=== PATIENT | female | born 2000 | race Caucasian/White ===

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

== ENCOUNTER → 2022-05-21 14:54 | Outpatient (CLI) | payer OTHER, SELFPAY | PROVIDERS: PCP Emergency Medicine; Visit Provider Nurse Practitioner | DX: Z02.9 Encounter for administrative examinations, unspecified (principal); Z11.1 Encounter for screening for respiratory tuberculosis ==

== ENCOUNTER 2022-07-19 17:24 | Emergency (ER) | payer OTHER, SELFPAY ==
[2022-07-19 17:30] VITALS: BP 131/76; PULSE 89; RESP 18; TEMP 36.6; O2SAT 98; BMI 34.7
--- NOTE | 2022-07-19 17:39 | EXP.UTC ---
Discharge Plan Disposition Patient Disposition: Home, Self-Care Condition: Good Prescriptions Prescriptions: New methylprednisolone [Medrol (Azeem)] 4 mg tablets,dose pack See Rx Instructions .Route .COMPLEX 6 Days Qty: 21 0RF Rx Instructions: taper pack; amoxicillin-pot clavulanate 875-125 mg Tablet 1 tab PO Q12H Qty: 14 0RF Referrals Follow up/Referrals: Marbin Saeed APRN [Primary Care Provider] - See instructions Activity Restrictions/Add. Instructions Additional Instructions/Restrictions: Take medication as presribed Follow up with your Family Doctor if no improvement or any worsening of symptoms Return if needed Straight to ER if any life threatening symptoms Clinical Impressions Clinical Impression: Sinusitis Qualifiers: Sinusitis location: unspecified location Chronicity: unspecified Qualified Code(s): J32.9 - Chronic sinusitis, unspecified Instructions Patient Instructions: Sinusitis, DI for Sinusitis Discharge ED Provider: Ghislaine Mccartney [facility] General Stated complaint: congestion Time Seen by Provider: 07/19/22 17:39 History of Present Illness Provider Complaint: Patient states that she has been having sinus pain and pressure for about a week that has continued to get worse States that today she was having pain behind her eyes and in her ears so she came in to get checked Related Data Previous Rx's Medication Instructions Recorded amoxicillin 875 mg-potassium 1 tab PO Q12H #14 tabs 07/19/22 clavulanate 125 mg tablet methylprednisolone 4 mg tablets in See Rx Instructions .Route 07/19/22 a dose pack (Medrol (Azeem)) .COMPLEX 6 days #21 tabs Allergies Allergy/AdvReac Type Severity Reaction Status Date / Time sulfamethoxazole Allergy Intermediate Rash Verified 10/09/20 11:31 [From Bactrim] trimethoprim [From Bactrim] Allergy Intermediate Rash Verified 10/09/20 11:31 Sulfa (Sulfonamide Allergy Verified 09/19/21 12:27 Antibiotics) [facility] Disclaimer: The information contained in this section may have been updated after the patient was seen, as this information can be updated by other users. Medical History (Updated 07/19/22 @ 17:44 by Danielle Tirado RN) Anxiety Depression Kidney stone Urinary tract infection Surgical History (Updated 07/19/22 @ 17:44 by Danielle Tirado RN) History of cholecystectomy History of tonsillectomy History of tympanostomy tube placement Social History (Updated 07/19/22 @ 17:44 by Danielle Tirado RN) Smoking Status: Never smoker alcohol intake: never substance use type: denies use current occupational status: other Travel in the last 8 weeks: None household members: family housing: house current occupational exposures/hazards: No ROS Obtained: Yes All systems reviewed & no additional complaints except as documented and Yes Systems reviewed as appropriate & no additional complaints except as documented Constitutional Constitutional: Reports system reviewed and no additional complaints, except as documented and Reports as per HPI ENT Ears, Nose, Mouth, and Throat: Reports system reviewed and no additional complaints, except as documented, Reports as per HPI, Reports sinus pain and Reports sinus pressure Cardiovascular Cardiovascular: Reports system reviewed and no additional complaints, except as documented and Reports as per HPI Respiratory Respiratory: Reports system reviewed and no additional complaints, except as documented and Reports as per HPI Gastrointestinal Gastrointestingal: Reports system reviewed and no additional complaints, except as documented and as per HPI Physical Exam General General appearance: alert and in no apparent distress Expanded ENT Exam Nose exam: Present sinus tenderness Throat exam: Present other (pharyngeal erythema noted with PND) Respiratory Respiratory exam: Present normal lung sounds bilaterally; Absent respiratory distress or wheezes Cardiovascul
[2022-07-19 17:50] VITALS: BP 131/76; PULSE 89; RESP 18; TEMP 36.6; O2SAT 98
== END 2022-07-19 17:57 | disposition home or self-care (01) ==
PROVIDERS: Emergency Provider Nurse Practitioner; PCP Nurse Practitioner Family
DX: J32.9 Chronic sinusitis, unspecified (principal)
CPT/HCPCS: 99212; G0463

== ENCOUNTER 2022-09-16 11:53 | Emergency (ER) | payer OTHER, SELFPAY ==
--- NOTE | 2022-09-16 11:57 | XR_ITS ---
PROCEDURE INFORMATION: Exam: XR Right Foot Exam date and time: 09/16/2022 12:06 PM Age: 22 years old Clinical indication: Pain; Foot; Right; Additional info: Pain- no injury just pain and unable to weight bear TECHNIQUE: Imaging protocol: Radiologic exam of the right foot. Views: 3 or more views. COMPARISON: CR XR ANKLE RT MIN 3V 09/16/2022 12:04 PM FINDINGS: Bones/joints: Normal alignment. No fracture. Joint surfaces preserved. Soft tissues: Normal. IMPRESSION: Normal right foot.
--- NOTE | 2022-09-16 11:57 | XR_ITS ---
PROCEDURE INFORMATION: Exam: XR Right Ankle Exam date and time: 09/16/2022 12:04 PM Age: 22 years old Clinical indication: Pain; Foot; Right; Additional info: Pain- no injury just pain and unable to weight bear TECHNIQUE: Imaging protocol: Radiologic exam of the right ankle. Views: 3 or more views. COMPARISON: No relevant prior studies available. FINDINGS: Bones/joints: Osseous structures and joint surfaces are intact. No fracture or malalignment. Soft tissues: Normal. IMPRESSION: Normal right ankle
--- NOTE | 2022-09-16 13:37 | EXP.UTC ---
Discharge Plan Disposition Patient Disposition: Home, Self-Care Condition: Good Prescriptions Prescriptions: New ibuprofen [IBU] 800 mg tablet 800 mg PO Q8HP PRN (Reason: Moderate Pain) Qty: 30 0RF Referrals Follow up/Referrals: Marbin Saeed APRN [Primary Care Provider] - See instructions Activity Restrictions/Add. Instructions Additional Instructions/Restrictions: Rest the extremity, Elevate the extremity as tolerated while you are resting. Take ibuprofen for pain. I sent in a prescription to your pharmacy. Follow up with Dr. Del Castillo (podiatry). Call her office in the morning and schedule an appointment. Follow up with your regular doctor. GO TO THE ER FOR ANY WORSENING SYMPTOMS Continue to use the crutches. Clinical Impressions Clinical Impression: Sprain of ankle, right Instructions Patient Instructions: Ankle Sprain, DI for Ankle Sprain Discharge ED Provider: Rowdy Young [facility] General Stated complaint: right foot/ankle pain, no known accident Time Seen by Provider: 09/16/22 13:37 History of Present Illness Provider Complaint: She states that she twisted her right ankle and fell 1 week ago. She has continued to have right ankle pain and swelling since then. Related Data Previous Rx's Medication Instructions Recorded ibuprofen 800 mg tablet (IBU) 800 mg PO Q8HP PRN Moderate Pain 09/16/22 #30 tabs Allergies Allergy/AdvReac Type Severity Reaction Status Date / Time sulfamethoxazole Allergy Intermediate Rash Verified 09/16/22 13:46 [From Bactrim] trimethoprim [From Bactrim] Allergy Intermediate Rash Verified 09/16/22 13:46 Sulfa (Sulfonamide Allergy Verified 09/16/22 13:46 Antibiotics) [facility] Disclaimer: The information contained in this section may have been updated after the patient was seen, as this information can be updated by other users. Medical History Anxiety Depression Kidney stone Urinary tract infection Surgical History History of cholecystectomy History of tonsillectomy History of tympanostomy tube placement Social History Smoking Status: Never smoker alcohol intake: never substance use type: denies use current occupational status: other Travel in the last 8 weeks: None household members: family housing: house current occupational exposures/hazards: No ROS Obtained: Yes All systems reviewed & no additional complaints except as documented Constitutional Constitutional: Denies chills and Denies fever(s) Eyes Eyes: Denies eye discharge ENT Ears, Nose, Mouth, and Throat: Denies dizziness, Denies otalgia and Denies sore throat Cardiovascular Cardiovascular: Denies chest pain Respiratory Respiratory: Denies shortness of breath, Denies chest congestion, Denies cough, Denies stridor and Denies wheezing Gastrointestinal Gastrointestingal: Denies nausea or vomiting Musculoskeletal Musculoskeletal: Reports as per HPI and Denies numbness Integumentary/Breasts Skin/Breast: Denies rash Neurologic Neurologic: Denies dizziness, Denies numbness, Denies paresthesias and Denies radicular pain Allergic/Immunologic Allergic/Immunologic: Denies wheezing Physical Exam General General appearance: alert and in no apparent distress Head Head exam: atraumatic, normocephalic and normal inspection Eye Eye exam: Present normal appearance, PERRL and EOMI ENT ENT exam: Present normal exam, normal oropharynx, mucous membranes moist, TM's normal bilaterally and normal external ear exam Neck Neck exam: Present normal inspection, full ROM and trachea midline; Absent meningismus or lymphadenopathy Chest Chest inspection: Present normal inspection and symmetric chest wall rise; Absent tenderness Respiratory Respiratory exam: Present normal lung sounds bilaterally; Absent respi
[2022-09-16 13:40] VITALS: BP 144/82; PULSE 101; RESP 20; TEMP 36.8; O2SAT 97; BMI 34.5
[2022-09-16 15:01] VITALS: BP 144/82; PULSE 101; RESP 20; TEMP 36.8; O2SAT 97
--- NOTE | 2022-09-16 15:06 | PC.NURSE ---
Pt extremity has good coloring, warm temp, good cap refill. She stated that she could feel me touching on her foot. Placed a air cast on the pts ankle.
== END 2022-09-16 15:00 | disposition home or self-care (01) ==
PROVIDERS: Emergency Provider Nurse Practitioner Family; PCP Nurse Practitioner Family
DX: S93.401A Sprain of unspecified ligament of right ankle, initial encounter (principal); W18.39XA Other fall on same level, initial encounter
CPT/HCPCS: 29515; 73610; 73630; 99212; 99214; G0463

== ENCOUNTER 2022-12-12 19:51 | Emergency (ER) | payer OTHER, SELFPAY ==
[2022-12-12 19:52] VITALS: BP 119/73; PULSE 60; RESP 16; TEMP 37; O2SAT 100; BMI 33.6
--- NOTE | 2022-12-12 20:09 | EXP.UTC ---
Discharge Plan Disposition Patient Disposition: Home, Self-Care Condition: Good Prescriptions Prescriptions: New amoxicillin [amoxicillin] 875 mg tablet 875 mg PO Q12H Qty: 20 0RF [id number]-cfihnprpk-DS [Bromfed DM] 2-30-10 mg/5 mL Syrup 5 ml PO Q6H PRN (Reason: Cough) Qty: 240 0RF methylprednisolone 4 mg Tablets,Dose Pack 4 mg PO DIRECTED Qty: 21 0RF No Action ibuprofen [IBU] 800 mg tablet 800 mg PO Q8HP PRN (Reason: Moderate Pain) Qty: 30 0RF Referrals Follow up/Referrals: Estephanie Marmolejo PA [Primary Care Provider] - See instructions Activity Restrictions/Add. Instructions Additional Instructions/Restrictions: Drink plenty of fluids. Take tylenol or ibuprofen for pain or fever. Take the medications as directed. Follow up with your regular doctor. GO TO THE ER FOR ANY WORSENING SYMPTOMS Clinical Impressions Clinical Impression: Pharyngitis Stand Alone Forms Stand Alone Forms: Work/School Release Instructions Patient Instructions: Sore Throat, DI for Pharyngitis/Tonsillopharyngitis -- Adult Discharge ED Provider: Rowdy Young [facility] General Stated complaint: sore throat, STEWARD Time Seen by Provider: 12/12/22 20:09 History of Present Illness Provider Complaint: She states that for the past 2 days she has had a sore throat, cough, body aches and chills. She has been exposed to strep throat. Related Data Previous Rx's Medication Instructions Recorded ibuprofen 800 mg tablet (IBU) 800 mg PO Q8HP PRN Moderate Pain 09/16/22 #30 tabs amoxicillin 875 mg tablet 875 mg PO Q12H #20 tabs 12/12/22 [id number]-gbweejrodbcomuh-RF 5 ml PO Q6H PRN Cough #240 mL 12/12/22 2 mg-30 mg-10 mg/5 mL oral syrup (Bromfed DM) methylprednisolone 4 mg tablets in 4 mg PO DIRECTED #21 tabs 12/12/22 a dose pack Allergies Allergy/AdvReac Type Severity Reaction Status Date / Time sulfamethoxazole Allergy Intermediate Rash Verified 09/16/22 13:46 [From Bactrim] trimethoprim [From Bactrim] Allergy Intermediate Rash Verified 09/16/22 13:46 Sulfa (Sulfonamide Allergy Verified 09/16/22 13:46 Antibiotics) [facility] Disclaimer: The information contained in this section may have been updated after the patient was seen, as this information can be updated by other users. Medical History Anxiety Depression Kidney stone Urinary tract infection Surgical History History of cholecystectomy History of tonsillectomy History of tympanostomy tube placement Social History Smoking Status: Never smoker alcohol intake: never substance use type: denies use current occupational status: other Travel in the last 8 weeks: None household members: family housing: house current occupational exposures/hazards: No ROS Obtained: Yes All systems reviewed & no additional complaints except as documented Constitutional Constitutional: Reports chills and Reports fever(s) Eyes Eyes: Denies eye discharge ENT Ears, Nose, Mouth, and Throat: Reports as per HPI Cardiovascular Cardiovascular: Denies chest pain Respiratory Respiratory: Denies chest congestion and Reports cough Gastrointestinal Gastrointestingal: Reports nausea; Denies abdominal pain, constipation, cramping, diarrhea or vomiting Musculoskeletal Musculoskeletal: Denies arthralgias Integumentary/Breasts Skin/Breast: Denies rash Neurologic Neurologic: Denies paresthesias Physical Exam General General appearance: alert and in no apparent distress Head Head exam: atraumatic, normocephalic and normal inspection Eye Eye exam: Present normal appearance, PERRL and EOMI ENT ENT exam: Present mucous membranes moist and normal external ear exam Expanded ENT Exam TM/Canal exam: Bilateral TM: erythema and bulging Nose exam: Absent sinus ten
[2022-12-12 20:18] LABS: UTC Strep Screen (Rapid) Negative (Negative)
[2022-12-12 20:28] VITALS: BP 119/73; PULSE 60; RESP 16; TEMP 37; O2SAT 100
== END 2022-12-12 20:29 | disposition home or self-care (01) ==
PROVIDERS: Emergency Provider Nurse Practitioner Family; PCP Physician Assistant
DX: J02.9 Acute pharyngitis, unspecified (principal); R68.83 Chills (without fever); F41.9 Anxiety disorder, unspecified; F32.A Depression, unspecified
CPT/HCPCS: 87880; 99212; 99214; G0463

== ENCOUNTER 2024-05-04 13:43 | Emergency (ER) | payer OTHER, SELFPAY ==
[2024-05-04 13:50] VITALS: BP 128/83; PULSE 77; RESP 20; TEMP 37.1; O2SAT 99; BMI 33.7
--- NOTE | 2024-05-04 13:51 | ED_ITS ---
Discharge Plan Disposition Patient Disposition: Home, Self-Care Condition: Good Prescriptions Prescriptions: New amoxicillin 875 mg tablet 875 mg PO Q12H Qty: 20 0RF [id number]-ysjqzabki-SG [Bromfed DM] 2-30-10 mg/5 mL Syrup 5 ml PO Q6H PRN (Reason: Cough) Qty: 240 0RF ondansetron 4 mg Tablet,Disintegrating 4 mg PO Q8H PRN (Reason: Nausea) Qty: 12 0RF Referrals Follow up/Referrals: Lev Frank DO [Primary Care Provider] - See instructions Activity Restrictions/Add. Instructions Additional Instructions/Restrictions: Drink plenty of fluids. Take tylenol or ibuprofen for pain or fever. Take the medications as directed. Follow up with your regular doctor. GO TO THE ER FOR ANY WORSENING SYMPTOMS Clinical Impressions Clinical Impression: Pharyngitis, Sinusitis Stand Alone Forms Stand Alone Forms: Work/School Release Instructions Patient Instructions: Sinusitis, DI for Sinusitis Print Language Print Language: [place] Discharge ED Provider: Rowdy Young [facility] General Stated complaint: congestion sore throat Time Seen by Provider: 05/04/24 13:50 History of Present Illness Provider Complaint: His mother states that the child has had sore throat, ear pain, and a cough for the past 5 days. They deny any fever/chills. Related Data Previous Rx's ?Medication ?Instructions ?Recorded amoxicillin 875 mg tablet 875 mg PO Q12H #20 tabs 05/04/24 jyczxjsvqzknjdh-ibazxdsyaxoplbb-BK 5 ml PO Q6H PRN Cough #240 mL 05/04/24 2 mg-30 mg-10 mg/5 mL oral syrup (Bromfed DM) ondansetron 4 mg disintegrating 4 mg PO Q8H PRN Nausea #12 tabs 05/04/24 tablet Allergies Allergy/AdvReac Type Severity Reaction Status Date / Time sulfamethoxazole Allergy Intermediate Rash Verified 09/16/22 13:46 [From Bactrim] trimethoprim [From Bactrim] Allergy Intermediate Rash Verified 09/16/22 13:46 Sulfa (Sulfonamide Allergy Verified 09/16/22 13:46 Antibiotics) [facility] Disclaimer: The information contained in this section may have been updated after the patient was seen, as this information can be updated by other users. Medical History Anxiety Depression Kidney stone Urinary tract infection Surgical History History of cholecystectomy History of tonsillectomy History of tympanostomy tube placement Social History Smoking Status: Never smoker alcohol intake: never substance use type: denies use current occupational status: other Travel in the last 8 weeks: None household members: family housing: house current occupational exposures/hazards: No ROS Obtained: Yes All systems reviewed & no additional complaints except as documented Constitutional Constitutional: Reports chills and Reports fever(s) Eyes Eyes: Denies eye discharge ENT Ears, Nose, Mouth, and Throat: Reports as per HPI Cardiovascular Cardiovascular: Denies chest pain Respiratory Respiratory: Denies chest congestion and Reports cough Gastrointestinal Gastrointestingal: Reports nausea; Denies abdominal pain, constipation, cramping, diarrhea or vomiting Musculoskeletal Musculoskeletal: Denies arthralgias Integumentary/Breasts Skin/Breast: Denies rash Neurologic Neurologic: Denies paresthesias Physical Exam General General appearance: alert and in no apparent distress Head Head exam: atraumatic, normocephalic and normal inspection Eye Eye exam: Present normal appearance; Absent PERRL or EOMI ENT ENT exam: Present mucous membranes moist and normal external ear exam Expanded ENT Exam TM/Canal exam: Bilateral TM: erythema, bulging and effusion Nose exam: Absent sinus tenderness Nasal speculum exam: Bilateral: normal Mouth exam: Present normal external inspection and other; Absent drooling Teeth exam: Present normal inspection Throat exam: Present tonsillar erythema and tonsillomegaly Neck Neck exam: Present normal inspection, full ROM and trachea midline; Absent te nderness, meningismus or lymphadenopathy Chest Chest inspection: Present normal inspection and symmetric chest wall rise; Absent tenderness Respiratory Respiratory exam: Present normal lung sounds bilaterally; Absent respiratory distress, wheezes or stridor Cardiovascular Cardiovascular exam: Present regular rate, normal rhythm and normal heart sounds; Absent tachycardia or irregular rhythm Abdominal Exam Abdominal exam: Present soft and normal bowel sounds; Absent distention, tenderness, guarding, rebound or rigidity Extremities Exam Extremities exam: Present normal inspection and normal capillary refill; Absent tenderness, joint swelling or calf tenderness Back Exam Back exam: Present normal inspection and full ROM; Absent tenderness, CVA tenderness (R) or CVA tenderness (L) Neurological Exam Neurological exam: Present alert, oriented X3, CN II-XII intact, normal gait and reflexes normal; Absent motor sensory deficit Psychiatric Psychiatric exam: Present normal affect and normal mood Skin Skin exam: Present warm, dry, intact and normal color Lymphatic Lymphatic Findings: no adenopathy Medical Decision Making Medical Records Medical records reviewed: No I reviewed the patient's medical records. Screening: Per USPSTF and CDC recommendations, given the prevalence of disease in our region, it is our hospital?s policy to screen for HIV and viral Hepatitis for all patients aged 18 and over and those with ongoing risk factors. Petar Inquiry Pt receiving controlled substance: No Lab Data Lab results reviewed: Yes I reviewed the patient's lab results.
[2024-05-04 14:02] LABS: UTC Strep Screen (Rapid) Negative (Negative)
[2024-05-04 14:27] VITALS: BP 128/83; PULSE 77; RESP 20; TEMP 37.1; O2SAT 99
[2024-05-04 14:34] LABS: Coronavirus 19, PCR Not Detected (NotDetected); Influenza A, PCR Not Detected (NotDetected); Influenza B, PCR Not Detected (NotDetected)
== END 2024-05-04 14:29 | disposition home or self-care (01) ==
PROVIDERS: Emergency Provider Nurse Practitioner Family; PCP Internal Medicine
DX: J02.9 Acute pharyngitis, unspecified (principal); J01.80 Other acute sinusitis
CPT/HCPCS: 87636; 87880; 99213; G0381

== ENCOUNTER 2024-05-09 10:18 | Outpatient (CLI) | payer SELFPAY ==
[2024-05-09 11:21] VITALS: BMI 32.8
[2024-05-09] MEDS: TUBERCULIN 5 UNITS/0.1ML 1ML VIAL ID (11:23)
== END 2024-05-09 23:59 | disposition home or self-care (01) ==
LOC: UTC.OUT 10:22
PROVIDERS: Visit Provider Nurse Practitioner Family
DX: Z11.1 Encounter for screening for respiratory tuberculosis (principal)
CPT/HCPCS: 86580

== ENCOUNTER 2024-09-08 10:51 | Outpatient (CLI) | payer OTHER, SELFPAY ==
[2024-09-08 21:04] LABS: Coronavirus 19, PCR Not Detected (NotDetected); Influenza A, PCR Not Detected (NotDetected); Influenza B, PCR Not Detected (NotDetected)
== END 2024-09-08 23:59 | disposition home or self-care (01) ==
LOC: LAB.DROPOF 09-09 10:51
PROVIDERS: PCP Student in an Organized Health Care Education/Training Program; Visit Provider Student in an Organized Health Care Education/Training Program
DX: J06.9 Acute upper respiratory infection, unspecified (principal); B34.9 Viral infection, unspecified
CPT/HCPCS: 87636

== ENCOUNTER 2024-09-09 15:13 | Emergency (ER) | payer OTHER, SELFPAY ==
[2024-09-09 15:23] VITALS: BP 144/89; PULSE 86; RESP 18; TEMP 36.9; O2SAT 99; BMI 35.4
--- NOTE | 2024-09-09 15:37 | PC.NURSE ---
pt c/o N/V/D, generalized intermittant abd cramping that is 6/10, and pressure with urination. pt states she took 400mg ibuprofen around 1200 without any relief. pt also reports concern that her LMP was 12.25.24 She states she is only sexually active with her and there is no chance of . pt reports a few years ago she had a R ovarian cyst the size of a football removed laproscopically. She states this abd pain is similar to then. pt also reports nasal congestion, a productive cough with milky green sputum, and losing her voice x2d. pt states she was seen at a [facility] yesterday evening and was negative for covid/flu.
--- NOTE | 2024-09-09 15:43 | ED_ITS ---
<Statement entered by Elva Cartagena DO - 09/10/24 00:33> I was consulted by the PRESTON, and we discussed the complexity of the problems being addressed. I approved the treatment and management plan for this patient's care in the emergency department, thus performing a substantive portion of the medical decision making. Please note then that is documented advises the patient was discharged with a disimpaction sheet, however she was not because she is having diarrhea. He looks that she has urinary tract infection as well as gastroenteritis. She was discharged with cefdinir, antiemetics, and instructions for supportive management. Elva Cartagena DO Discharge Plan Disposition Patient Disposition: Home, Self-Care Condition: Good Prescriptions Prescriptions: New ondansetron 4 mg tablet,disintegrating 4 mg PO QID PRN (Reason: nausea and vomiting) Qty: 10 0RF cefdinir 300 mg capsule 300 mg PO BID 5 Days Qty: 10 0RF promethazine 25 mg tablet 25 mg PO Q6H PRN (Reason: nausea and vomiting) Qty: 20 0RF Referrals Follow up/Referrals: Jose J Pagan II, MD [Staff Physician] - See instructions Lev Frank DO [Primary Care Provider] - See instructions Activity Restrictions/Add. Instructions Additional Instructions/Restrictions: Sent in a prescription to your pharmacy to treat your urinary tract infection. Please take your antibiotic till it is gone completely. I have also sent in nausea medication. If you have continued new or worsening signs or symptoms follow-up with your PCP or return to the ER as needed. Clinical Impressions Clinical Impression: Enterocolitis Urinary tract infectious disease Qualifiers: Urinary tract infection type: site unspecified Stand Alone Forms Stand Alone Forms: Work/School Release Print Language Print Language: Persian Discharge ED Provider: Elva Cartagena General Adult HPI General Chief complaint: Nausea/Vomiting/Diarrhea Stated complaint: abd pain, vomiting Time Seen by Provider: 09/09/24 15:43 Mode of Arrival: Ambulatory Source of Information: Patient Description of Symptoms (Recalled from ER Triage Doc. by RN): Pt presents for evaluation of N/V/D and stomach cramping x 1 week. Pt states she was seen at urgent care last night covid/flu swab was negative, pt states they did not send any urine to be sampled. Pt History of Present Illness HPI narrative: Patient reports that she has had abdominal pain off and on for 4 weeks however she has had nausea vomiting diarrhea x 1 week. She reports that she is able to eat and drink however it makes her symptoms worse. She reports that she is passing stool and flatus. She was evaluated for this at the urgent care last night had a COVID and flu swab which were negative but her symptoms persist. She denies any chest pain shortness of breath cough hemoptysis hematochezia melena hematemesis hematuria dysuria. Related Data Previous Rx's ?Medication ?Instructions ?Recorded cefdinir 300 mg capsule 300 mg PO BID 5 days #10 caps 09/09/24 ondansetron 4 mg disintegrating 4 mg PO QID PRN nausea and 09/09/24 tablet vomiting #10 tabs promethazine 25 mg tablet 25 mg PO Q6H PRN nausea and 09/09/24 vomiting #20 tabs Allergies Allergy/AdvReac Type Severity Reaction Status Date / Time sulfamethoxazole (From Allergy Intermediate Rash Verified 09/09/24 16:35 Bactrim) trimethoprim (From Bactrim) Allergy Intermediate Rash Verified 09/09/24 16:35 Sulfa (Sulfonamide Allergy Rash Verified 09/09/24 16:35 Antibiotics) [facility] Disclaimer: The information contained in this section may have been updated after the patient was seen, as this information can be updated by other users. Medical History Depression Anxiety Urinary tract infection Kidney stone Surgical History History of tympanostomy tube placement History of tonsillectomy History of cholecystectomy Social History Smoking Status: Current every day smoker alcohol intake: never substance use type: denies use current occupational status: other Travel in the last 8 weeks: None household members: family housing: house current occupational exposures/hazards: No Have you lived/traveled outside [place] in past 30 days?: No Contact w/someone who lives/traveled outside [place] past 30 days?: No Exposure to someone with infectious disease in past 14 days?: No Do you have a fever (greater than 100.4 F or 38 C)?: Yes Have you tested positive for COVID-19: No Exposed to someone with COVID-19 in past 14 days?: No Do you have a sore throat?: No Do you have a cough?: No Do you have any weakness?: No Do you have any diarrhea?: No Are you experiencing any unusual bleeding?: No Do you have any muscle aches/pain?: No Do you have any abdominal pain?: Yes Are you experiencing loss of taste or smell?: No Other Medical History Have you received the Flu Vaccine for this season: No Have you received the Pneumonia Vaccine: No ROS Obtained: Yes Systems reviewed as appropriate & no additional complaints except as documented Physical Exam General General appearance: alert and in no apparent distress Respiratory Respiratory exam: Present normal lung sounds bilaterally Cardiovascular Cardiovascular exam: Present regular rate and +S2 Neurological Exam Neurological exam: Present alert and oriented X3 Medical Decision Making Medical Records Medical records reviewed: Yes I reviewed the patient's medical records. Screening: Per USPSTF and CDC recommendations, given the prevalence of disease in our region, it is our hospital?s policy to screen for HIV and viral Hepatitis for all patients aged 18 and over and those with ongoing risk factors. Petar Inquiry Pt receiving controlled substance: No Vital Signs: 09/09/24 15:23 09/09/24 16:15 09/09/24 16:46 Temperature 98.4 F Temperature Source Oral Pulse Rate 96 H 95 H Pulse Rate [Right] 86 Respiratory Rate 18 Blood Pressure 128/79 125/83 Blood Pressure [Right Arm] 144/89 H Blood Pressure Mean [Right Arm] 107 Blood Pressure Source [Right Arm] Automatic Cuff Blood Pressure Position [Right Arm] Sitting 02 Sat by Pulse Oximetry 99 97 98 Oxygen Delivery Method Room Air Room Air Room Air 09/09/24 18:00 09/09/24 19:55 Temperature 98.3 F Temperature Source Oral Pulse Rate 79 64 Pulse Rate [Right] Respiratory Rate 18 Blood Pressure 138/81 109/79 L Blood Pressure [Right Arm] Blood Pressure Mean [Right Arm] Blood Pressure Source [Right Arm] Blood Pressure Position [Right Arm] 02 Sat by Pulse Oximetry 99 Oxygen Delivery Method Room Air Room Air Lab Data Lab results reviewed: Yes I reviewed the patient's lab results. Lab Results 09/09/24 15:48: Urine Color Yellow, Urine Appearance Clear, Urine pH 6.0, Ur Specific [place] >= 1.030, Urine Protein Trace, Urine Glucose (UA) Negative, Urine Ketones 1+, Urine Blood Negative, Urine Nitrate Negative, Urine Bilirubin 1+ A, Urine Urobilinogen 0.2, Ur Leukocyte Esterase Negative, Urine RBC None, Urine WBC 3-5, Ur Squamous Epith Cells Occasional, Urine Bacteria 1+ 09/09/24 15:57: WBC 11.0 H, RBC 5.21, Hgb 14.5, Hct 41.9, MCV 80.4 L, MCH 27.8, MCHC 34.6, RDW 12.4, Plt Count 328, MPV 11.3 H, Neut % (Auto) 71.0, Lymph % (Auto) 24.4, [place] % (Auto) 3.2, Eos % (Auto) 0.6, Baso % (Auto) 0.5, Neut # (Auto) 7.8, Lymph # (Auto) 2.7, [place] # (Auto) 0.4, Eos # (Auto) 0.1, Baso # (Auto) 0.1, Sodium 139, Potassium 3.7, Chloride 104, Carbon Dioxide 25, Anion Gap 13.7, BUN 13, Creatinine 0.60, Estimated Creat Clear 211, Estimated GFR 125, Est GFR ( Amer) 151, Glucose 178 H, Calcium 9.1, Magnesium 2.0, Total Bilirubin 0.7, AST 32, ALT 29, Alkaline Phosphatase 86, Troponin I < 0.01, Total Protein 8.4 H, Albumin 4.9, Globulin 3.5 H, Albumin/Globulin Ratio 1.4, Procalcitonin < 0.030, Serum HCG, Qual Negative, HCV Ab BAL w/Rflx PCR Qn Negative, HIV Ag/Ab Combo Qual Negative 09/09/24 16:55: Stl Aeromonas (PCR) Not detected, Stl C. cayetanensis PCR Not detected, Stool Rotavirus (PCR) Not detected, Stl Adenov F 40/41 PCR Not detected, Stool Astrovirus (PCR) Not detected, Stool Campylobacter PCR Not detected, Stl C.difficile Tox PCR Not detected, Stool Cryptosporidium PCR Not detected, Stl E.coli Shiga Tox PCR Not detected, Stool E coli O157 PCR Not detected, Stl Enterotoxigenic E PCR Not detected, Stool EPEC (PCR) Not detected, Stool EAEC (PCR) Not detected, Stl E. histolytica PCR Not detected, Stool Giardia Lamblia PCR Not detected, Stool Salmonella PCR Not detected, Stool Sapovirus (PCR) Not detected, Stl P. shigelloides PCR Not detected, Stl Shigella/EIEC PCR Not detected, St Y.enterocolitica PCR Not detected, Stool Vibrio (PCR) Not detected, Stl Vibrio cholerae PCR Not detected, Stl Norovirus GI/GII PCR Not detected 09/09/24 15:57 09/09/24 15:57 Orders (Tests/Meds): ED MEDICATIONS Discontinued Medications Generic Name Dose Route Start Last Admin Trade Name Freq PRN Reason Stop Dose Admin Acetaminophen 1,000 mg 09/09/24 16:33 09/09/24 17:09 Acetaminophen 1,000mg/100ml Vial IV 09/09/24 16:34 1,000 mg ONCE ONE Administration Sodium Chloride 1,000 mls @ 999 mls/hr 09/09/24 16:33 09/09/24 17:09 Sod Chlor 0.9% 1000ml Bag IV 09/09/24 17:33 999 mls/hr .Q1H1M ONE Administration Iopamidol 75 ml 09/09/24 17:46 09/09/24 17:49 Iopamidol-370 (76%);100ml Bottle IV 09/09/24 17:47 75 ml ONCE ONE Administration Ketorolac Tromethamine 15 mg 09/09/24 16:33 09/09/24 17:10 Ketorolac 30mg/Ml Vial IV 09/09/24 16:34 15 mg ONCE ONE Administration Sodium Chloride 10 ml 09/09/24 17:46 09/09/24 17:49 Sodium Chloride 0.9% 10ml Syr (Rad Only) IV 09/09/24 17:47 10 ml ONCE ONE Administration ORDERS Category Date Time Status CT abdomen pelvis w con Stat Cat Scan 09/09/24 16:33 Completed CBC w/Auto Diff [Complete Blood Count Auto Diff] Stat Lab 09/09/24 15:57 Completed CMP [Comprehensive Metabolic Panel] Stat Lab 09/09/24 15:57 Completed Diarrhea 23 Panel, PCR Stat Lab 09/09/24 16:55 Completed HIV Combo Stat Lab 09/09/24 15:57 Completed Hepatitis C Ab Qual. W/ RFX Stat Lab 09/09/24 15:57 Completed Magnesium Stat Lab 09/09/24 15:57 Completed Procalcitonin Stat Lab 09/09/24 15:57 Completed Serum [HCG Qualitative, Serum] Stat Lab 09/09/24 15:57 Completed Trop I [Troponin I] Stat Lab 09/09/24 15:57 Completed Urinalysis and Microscopic Stat Lab 09/09/24 15:48 Completed Medical Decision Narrative: In summary patient is a 24-year-old female who presents to the emergency department for evaluation of abdominal pain nausea vomiting diarrhea. Patient is hemodynamically stable upon arrival, febrile. Physical labs remarkable for mild diffuse abdominal tenderness without rebound or guarding or rigidity. Bowel sounds normal active.. Differential diagnosis includes constipation versus gastroenteritis versus diverticulitis versus urinary tract infection versus ovarian cyst etc. Initial workup will be conducted with hematologic labs urinalysis CT scan abdomen pelvis. Initial interventions include crystalloid bolus Zofran Toradol Tylenol. Initial workup reviewed by me shows that her hematologic labs are nonactionable including a negative troponin undetected bland urinalysis negative diarrhea panel and my informal interpretation of CT scan abdomen pelvis shows a significant colonic stool burden but no worrisome stranding bowel wall thickening free fluid or free air.. Upon repeat evaluation patient actually reported significant improvement in her symptoms and is able to tolerate oral intake. Given this patient is appropriate for discharge with a disimpaction sheet, referral to gastroenterology for further workup of her constipation problems and strict return precautions. Critical Care Critical Care Time Critical Care Time: No
[2024-09-09 15:52] LABS: Microscopic, Urine URINE MICROSCOPIC (MICROSCOPIC)
[2024-09-09 15:58] LABS: Appearance,Urine CLEAR (Clear); Blood, Urine Negative (Negative); Color,Urine YELLOW (Yellow); Glucose,Urine (UA) Negative (Negative); Ketones,Urine 1+ (Negative); Leukocyte Esterase,Urine Negative (Negative); Nitrate,Urine Negative (Negative); Protein,Urine TRACE (Negative); Specific Gravity, Urine >= 1.030 (1.005-1.030); Urobilinogen,Urine 0.2 EU/dl (0.2)
[2024-09-09 16:15] VITALS: BP 128/79; PULSE 96; O2SAT 97
--- NOTE | 2024-09-09 16:33 | CT_ITS ---
PROCEDURE INFORMATION: Exam: CT Abdomen And Pelvis With Contrast Exam date and time: 09/09/2024 5:47 PM Age: 24 years old Clinical indication: Abdominal pain; Additional info: Abdominal pain and cramping TECHNIQUE: Imaging protocol: Computed tomography of the abdomen and pelvis with contrast. Radiation optimization: All CT scans at this facility use at least one of these dose optimization techniques: automated exposure control; mA and/or kV adjustment per patient size (includes targeted exams where dose is matched to clinical indication); or iterative reconstruction. Contrast material: ISOVUE; Contrast volume: 75 ml; Contrast route: IV; COMPARISON: CT ABDOMEN PELVIS W CON 03/09/2019 07:15 FINDINGS: Lungs: Mild bibasilar atelectasis. Liver: There is a 2.3 cm right hepatic enhancing nodule on image 23 series 3 that is unchanged. This is most likely benign, such as a hemangioma. Gallbladder and biliary ducts: Gallbladder is absent. Pancreas: Normal. No ductal dilation. Spleen: Normal. No splenomegaly. Adrenal glands: Normal. No mass. Kidneys and ureters: Normal. No hydronephrosis. Stomach and bowel: The majority of the colon is collapsed, which is a nonspecific appearance that can correlate with colitis in the appropriate clinical setting. Appendix: Unremarkable appendix. Intraperitoneal space: Unremarkable. No free air. No significant fluid collection. Vasculature: Unremarkable. No abdominal aortic aneurysm. Lymph nodes: Unremarkable. No enlarged lymph nodes. Urinary bladder: Mild nonspecific urinary bladder wall thickening, which is likely due to low urine volume. Reproductive: Unremarkable as visualized. Bones/joints: Unremarkable. No acute fracture. Soft tissues: Unremarkable. IMPRESSION: 1. The majority of the colon is collapsed, which is a nonspecific appearance that can correlate with colitis in the appropriate clinical setting. 2. Mild nonspecific urinary bladder wall thickening, which is likely due to low urine volume. However, please exclude infection.
[2024-09-09 16:43] LABS: Basophils # 0.1 K/mm3 (0-0.2); Basophils % 0.5 % (0.1-2.0); Eosinophils # 0.1 K/mm3 (0.0-0.4); Eosinophils % 0.6 % (0.1-12.0); Hematocrit 41.9 % (37.0-47.0); Hemoglobin 14.5 g/dL (12.2-16.2); Lymphocytes # 2.7 K/mm3 (0.7-4.5); Lymphocytes % 24.4 % (10-50); Mean Corpuscular HGB Conc 34.6 g/dL (31.8-35.4); Mean Corpuscular Hemoglobin 27.8 pg (27.0-31.2); Mean Corpuscular Volume 80.4 fl (81-99); Mean Platelet Volume 11.3 fl (7.4-10.4); Monocytes # 0.4 K/mm3 (0.1-1.0); Monocytes % 3.2 % (1.7-9.3); Neutrophils # 7.8 K/mm3 (1.8-7.8); Platelet Count 328 K/mm3 (142-424); Red Blood Count 5.21 M/mm3 (4.20-5.40); Red Cell Distribution Width 12.4 % (11.5-17.5)
[2024-09-09 16:46] VITALS: BP 125/83; PULSE 95; O2SAT 98
[2024-09-09 16:53] LABS: Albumin Level 4.9 g/dl (3.5-5.0); Chloride 104 mmol/L (98-107); Potassium 3.7 mmoL/L (3.5-5.1); Sodium 139 mmol/L (136-145)
[2024-09-09 16:56] LABS: Alanine Aminotransferase 29 U/L (12-78); Albumin/Globulin Ratio 1.4 (1.1-1.8); Alkaline Phosphatase 86 U/L (38-126); Anion Gap 13.7 mEq/L (5-15); Aspartate Amino Transferase 32 U/L (14-36); Bilirubin,Total 0.7 mg/dl (0.2-1.3); Blood Urea Nitrogen 13 mg/dl (7-17); Calcium 9.1 mg/dl (8.4-10.2); Carbon Dioxide 25 mmol/L (22.0-30.0); Creatinine Clearance Estimated 211 mL/min (50-200); Estimated Glomerular Filt Rate 125 ml/min (>60); GFR (African American) 151 ML/MIN (>60); Globulin 3.5 g/dL (1.3-3.2); Glucose 178 mg/dl (74-100); Total Protein,Serum 8.4 g/dl (6.3-8.2)
[2024-09-09 17:02] LABS: Adenovirus F 40/41, stool Not Detected (NotDetected); Astrovirus Not Detected (NotDetected); Campylobacter Not Detected (NotDetected); Clostridium Difficile A/B, PCR Not Detected (NotDetected); Cryptosporidium Not Detected (NotDetected); Cyclospora Cayetanesis Not Detected (NotDetected); Entamoeba histolytica Not Detected (NotDetected); Enteroaggregative E coli Not Detected (NotDetected); Enteropathogenic E coli Not Detected (NotDetected); Enterotoxigenic E coli Not Detected (NotDetected); Giardia lamblia Not Detected (NotDetected); Norovirus Not Detected (NotDetected); Plesimonas Shigalloides, PCR Not Detected (NotDetected); Rotavirus A Not Detected (NotDetected); Salmonella, PCR Not Detected (NotDetected); Sapovirus Not Detected (NotDetected); Shiga-like toxin E coli Not Detected (NotDetected); Shigella Enterovasive E coli Not Detected (NotDetected); Vibrio Cholerae Not Detected (NotDetected); Vibrio, PCR Not Detected (NotDetected); Yersinia Entercolitica, PCR Not Detected (NotDetected)
[2024-09-09] MEDS: 0.9 % SODIUM CHLORIDE 1000ML 1,000 ML 999 ML IV (17:09)
[2024-09-09] MEDS: ACETAMINOPHEN 1,000MG/100ML VIAL 1000 MG IV (17:09)
[2024-09-09] MEDS: KETOROLAC 30MG/ML VIAL 15 MG IV (17:10)
[2024-09-09 17:16] LABS: Troponin I < 0.01 ng/ml (0.00-0.034)
[2024-09-09 17:34] LABS: Bilirubin,Urine 1+ (Negative)
--- NOTE | 2024-09-09 17:39 | PC.NURSE ---
I notified radiology that the pt is willing to sign saying that she will get the CT without a preg test. pt states she is to a woman and has not been sexually active with a male for three years.
[2024-09-09] MEDS: IOPAMIDOL-370 (76%);100ML BOTTLE 75 ML IV (17:49)
[2024-09-09] MEDS: SODIUM CHLORIDE 0.9% 10ML SYR (RAD ONLY) 10 ML IV (17:49)
[2024-09-09 18:00] VITALS: BP 138/81; PULSE 79; O2SAT 99
[2024-09-09 18:57] LABS: HIV Combo NEGATIVE (Negative)
[2024-09-09 19:06] LABS: Hepatitis C Ab Qual. W/ RFX NEGATIVE (Negative)
[2024-09-09 19:07] LABS: Procalcitonin < 0.030 ng/mL (0.0-2.0)
[2024-09-09 19:15] LABS: HCG Qualitative, Serum Negative (Negative)
[2024-09-09 19:37] LABS: Bacteria,Urine 1+ /lpf; Squamous Epithelial Cell,Urine Occasional #/hpf (0-5)
[2024-09-09 19:55] VITALS: BP 109/79; PULSE 64; RESP 18; TEMP 36.8; O2SAT 99
== END 2024-09-09 20:13 | disposition home or self-care (01) ==
PROVIDERS: Physician Assistant; Emergency Provider Emergency Medicine; PCP Internal Medicine
DX: N39.0 Urinary tract infection, site not specified (principal); K52.9 Noninfective gastroenteritis and colitis, unspecified; R11.2 Nausea with vomiting, unspecified; R10.9 Unspecified abdominal pain; Z72.0 Tobacco use
CPT/HCPCS: 74177; 80053; 81001; 83735; 84145; 84484; 84703; 85025; 86803; 87389; 87507; 96361; 96374; 96375; 99285; J0131; J1885; J7030; Q9967

== ENCOUNTER 2024-10-09 13:03 | Outpatient (CLI) | payer OTHER, SELFPAY ==
--- NOTE | 2024-10-09 13:06 | US_ITS ---
PROCEDURE: US PELVIC CLINICAL INDICATION: COMPLETE LEFT OVARY COMPARISON: No exams were available for comparison FINDINGS: Transabdominal sonographic images of the pelvis were obtained. UTERUS: 8.8 cm x 4.9 cmx 3.8 cm anteverted with a combined endometrial thickness of 9.8mm. LEFT OVARY: 4.4cmx3.8 cmx1.9cm with a volume of 16.2ml. There are multiple small peripheral follicles consistent with a polycystic ovary. There is a dominant follicle measuring 1.7 cm x 1.0 cm x 2.4 cm. RIGHT OVARY: 3.5 cmx 3.0cmx1.7 cm with a volume of 9.6ml. There are multiple small peripheral follicles consistent with a polycystic ovary. Both ovaries are seen and appear normal. Doppler flow to both ovaries are seen. There is no fluid in the cul-de-sac. IMPRESSION: 1. Anteverted uterus upper limits of normal in size. The endometrium measures 9.8 mm and appears normal. 2. Both ovaries are seen and appear polycystic. Within the left ovary is a follicle measuring 2.4 cm. 3. No fluid in the cul-de-sac. Dictated by: Dave Ash MD 10/10/2024 08:50 Dave Ash MD in [place] 10/10/2024 08:50
== END 2024-10-09 23:59 | disposition home or self-care (01) ==
LOC: RAD 13:04
PROVIDERS: PCP Nurse Practitioner Family; Visit Provider Nurse Practitioner Family
DX: R19.09 Other intra-abdominal and pelvic swelling, mass and lump (principal)
CPT/HCPCS: 76856

== ENCOUNTER 2024-11-06 12:42 | Emergency (ER) | payer BC, OTHER, SELFPAY ==
--- NOTE | 2024-11-06 12:47 | ED_ITS ---
Discharge Plan Disposition Patient Disposition: Home, Self-Care Condition: Good Prescriptions Prescriptions: New ondansetron 4 mg tablet,disintegrating 4 mg PO QID PRN (Reason: nausea and vomiting) Qty: 10 0RF No Action ondansetron 4 mg tablet,disintegrating 4 mg PO QID PRN (Reason: nausea and vomiting) Qty: 10 0RF cefdinir 300 mg capsule 300 mg PO BID 5 Days Qty: 10 0RF promethazine 25 mg tablet 25 mg PO Q6H PRN (Reason: nausea and vomiting) Qty: 20 0RF Referrals Follow up/Referrals: Jose J Pagan II, MD [Staff Physician] - See instructions (Stable liver mass) Abeba Carrasquillo APRN [Primary Care Provider] - See instructions Activity Restrictions/Add. Instructions Additional Instructions/Restrictions: Please keep checking the portal for your diarrhea panel. I will contact you if I need to add to your treatment this evening. As we discussed I have sent in antinausea medicine to your pharmacy. Also I recommend starting a bananas rice applesauce toast diet until you tolerate oral intake and then advance your diet as tolerated. I have also referred you to gastroenterology for further evaluation of the mass seen on your CAT scan. If you have any continued new or worsening signs or symptoms follow-up with your PCP return to the ER as needed. Clinical Impressions Clinical Impression: Nausea vomiting and diarrhea, Liver mass Stand Alone Forms Stand Alone Forms: Work/School Release Print Language Print Language: Jordanian Discharge ED Provider: Arian Lind General Adult HPI <JOAN Collier - Last Filed: 11/06/24 16:40> General Chief complaint: Nausea/Vomiting/Diarrhea Stated complaint: Lower abd. pain, diarrhea, vomiting Time Seen by Provider: 11/06/24 12:47 History of Present Illness HPI narrative: Patient presents for evaluation of nausea vomiting diarrhea and abdominal pain. Patient has had 2 days of nausea vomiting diarrhea and abdominal pain. She denies any fever chills hemoptysis hematochezia melena hematemesis hematuria. She is gone more than 5 times today with loose stool however she has not noticed any blood and she has vomited several times and now cannot keep anything down. She does have a history of polycystic ovary disease and was started on metformin approximately a month ago. She has a remote history of a large left ovarian cyst that was surgically removed but they left her ovary. She has also had a previous cholecystectomy. Related Data Previous Rx's ?Medication ?Instructions ?Recorded cefdinir 300 mg capsule 300 mg PO BID 5 days #10 caps 09/09/24 ondansetron 4 mg disintegrating 4 mg PO QID PRN nausea and 09/09/24 tablet vomiting #10 tabs promethazine 25 mg tablet 25 mg PO Q6H PRN nausea and 09/09/24 vomiting #20 tabs ondansetron 4 mg disintegrating 4 mg PO QID PRN nausea and 11/06/24 tablet vomiting #10 tabs Allergies Allergy/AdvReac Type Severity Reaction Status Date / Time sulfamethoxazole (From Allergy Intermediate Rash Verified 09/09/24 16:35 Bactrim) trimethoprim (From Bactrim) Allergy Intermediate Rash Verified 09/09/24 16:35 Sulfa (Sulfonamide Allergy Rash Verified 09/09/24 16:35 Antibiotics) [facility] <JOAN Collier - Last Filed: 11/06/24 16:40> [facility] Disclaimer: The information contained in this section may have been updated after the patient was seen, as this information can be updated by other users. Medical History Depression Anxiety Urinary tract infection Kidney stone Surgical History History of tympanostomy tube placement History of tonsillectomy History of cholecystectomy Social History Smoking Status: Current every day smoker alcohol intake: never substance use type: denies use current occupational status: other Travel in the last 8 weeks?: None household members: family housing: house current occupational exposures/hazards: No Have you lived/traveled outside [place] in past 30 days?: No Contact w/someone who lives/traveled outside [place] past 30 days?: No Exposure to someone with infectious disease in past 14 days?: No Do you have a fever (greater than 100.4 F or 38 C)?: No Have you tested positive for COVID-19?: No Exposed to someone with COVID-19 in past 14 days?: No Do you have a sore throat?: No Do you have a cough?: No Do you have any weakness?: No Do you have any diarrhea?: Yes Are you experiencing any unusual bleeding?: No Do you have any muscle aches/pain?: No Do you have any abdominal pain?: Yes Are you experiencing loss of taste or smell?: No Other Medical History Have you received the Flu Vaccine for this season: No Have you received the Pneumonia Vaccine: No <JOAN Collier - Last Filed: 11/06/24 16:40> ROS Obtained: Yes Systems reviewed as appropriate & no additional complaints except as documented Physical Exam <JOAN Collier - Last Filed: 11/06/24 16:40> General General appearance: alert and in no apparent distress Respiratory Respiratory exam: Present normal lung sounds bilaterally Cardiovascular Cardiovascular exam: Present tachycardia Neurological Exam Neurological exam: Present alert and oriented X3 Medical Decision Making <JOAN Collier - Last Filed: 11/06/24 16:40> Medical Records Medical records reviewed: Yes I reviewed the patient's medical records. Screening: Per USPSTF and CDC recommendations, given the prevalence of disease in our region, it is our hospital?s policy to screen for HIV and viral Hepatitis for all patients aged 18 and over and those with ongoing risk factors. Petar Inquiry Pt receiving controlled substance: No Vital Signs: 11/06/24 12:56 11/06/24 15:22 11/06/24 16:07 Temperature 97.9 F 97.8 F 97.8 F Temperature Source Oral Oral Oral Pulse Rate 58 L 58 L Pulse Rate [Radial] 102 H Respiratory Rate 18 18 18 Blood Pressure 103/62 L 103/62 L Blood Pressure [Right Arm] 126/88 Blood Pressure Mean [Right Arm] 100 Blood Pressure Source Automatic Cuff Automatic Cuff Blood Pressure Source [Right Arm] Automatic Cuff Blood Pressure Position Supine Sitting Blood Pressure Position [Right Arm] Sitting 02 Sat by Pulse Oximetry 100 100 Oxygen Delivery Method Room Air Room Air Room Air Lab Data Lab results reviewed: Yes I reviewed the patient's lab results. Lab Results 11/06/24 13:11: Urine Color Yellow, Urine Appearance Clear, Urine pH 5.5, Ur Specific [place] >= 1.030, Urine Protein Negative, Urine Glucose (UA) Negative, Urine Ketones Negative, Urine Blood 1+ A, Urine Nitrate Negative, Urine Bilirubin Negative, Urine Urobilinogen 0.2, Ur Leukocyte Esterase Negative, Urine RBC 5-10, Urine WBC 5-10, Ur Squamous Epith Cells 20-50, Urine Bacteria 3+ 11/06/24 13:17: WBC 12.1 H, RBC 4.90, Hgb 14.0, Hct 40.3, MCV 82.2, MCH 28.6, MCHC 34.7, RDW 12.4, Plt Count 313, MPV 10.9 H, Neut % (Auto) 69.1, Lymph % (Auto) 25.0, Davidson % (Auto) 3.9, Eos % (Auto) 1.1, Baso % (Auto) 0.7, Neut # (Auto) 8.3 H, Lymph # (Auto) 3.0, Davidson # (Auto) 0.5, Eos # (Auto) 0.1, Baso # (Auto) 0.1, Sodium 141, Potassium 4.2, Chloride 108 H, Carbon Dioxide 22, Anion Gap 15.2 H, BUN 14, Creatinine 0.60, Estimated Creat Clear 190, Estimated GFR 125, Est GFR ( Amer) 151, Glucose 103 H, Calcium 9.3, Magnesium 1.7, Total Bilirubin 0.4, AST 20, ALT 17, Alkaline Phosphatase 63, Total Protein 8.1, Albumin 5.2 H, Globulin 2.9, Albumin/Globulin Ratio 1.8, Lipase 65, Procalcitonin < 0.030, Serum HCG, Qual Negative 11/06/24 14:15: Stl Aeromonas (PCR) Not detected, Stl C. cayetanensis PCR Not detected, Stool Rotavirus (PCR) Not detected, Stl Adenov F 40/41 PCR Not detected, Stool Astrovirus (PCR) Not detected, Stool Campylobacter PCR Not detected, Stl C.difficile Tox PCR Not detected, Stool Cryptosporidium PCR Not detected, Stl E.coli Shiga Tox PCR Not detected, Stool E coli O157 PCR Not detected, Stl Enterotoxigenic E PCR Not detected, Stool EPEC (PCR) Not detected, Stool EAEC (PCR) Not detected, Stl E. histolytica PCR Not detected, Stool Giardia Lamblia PCR Not detected, Stool Salmonella PCR Not detected, Stool Sapovirus (PCR) Not detected, Stl P. shigelloides PCR Not detected, Stl Shigella/EIEC PCR Not detected, St Y.enterocolitica PCR Not detected, Stool Vibrio (PCR) Not detected, Stl Vibrio cholerae PCR Not detected, Stl Norovirus GI/GII PCR Not detected 11/06/24 13:17 11/06/24 13:17 Orders (Tests/Meds): ED MEDICATIONS Discontinued Medications Generic Name Dose Route Start Last Admin Trade Name Freq PRN Reason Stop Dose Admin Sodium Chloride 1,000 mls @ 999 mls/hr 11/06/24 12:58 11/06/24 13:17 Sod Chlor 0.9% 1000ml Bag IV 11/06/24 13:58 999 mls/hr .Q1H1M ONE Administration Iopamidol 75 ml 11/06/24 14:29 11/06/24 14:30 Iopamidol-370 (76%);100ml Bottle IV 11/06/24 14:30 75 ml ONCE ONE Administration Ketorolac Tromethamine 15 mg 11/06/24 12:58 11/06/24 13:16 Ketorolac 30mg/Ml Vial IV 11/06/24 12:59 15 mg ONCE ONE Administration Ondansetron HCl 4 mg 11/06/24 12:58 11/06/24 13:16 Ondansetron 4mg/2ml Vial IV 11/06/24 12:59 4 mg ONCE ONE Administration Sodium Chloride 10 ml 11/06/24 14:29 11/06/24 14:30 Sodium Chloride 0.9% 10ml Syr (Rad Only) IV 11/06/24 14:30 10 ml ONCE ONE Administration ORDERS Category Date Time Status CT abdomen pelvis w con Stat Cat Scan 11/06/24 12:58 Completed CBC w/Auto Diff [Complete Blood Count Auto Diff] Stat Lab 11/06/24 13:17 Completed CMP [Comprehensive Metabolic Panel] Stat Lab 11/06/24 13:17 Completed Diarrhea 23 Panel, PCR Stat Lab 11/06/24 14:15 Completed HCG Qualitative, Serum Stat Lab 11/06/24 13:17 Completed Lipase Stat Lab 11/06/24 13:17 Completed Magnesium Stat Lab 11/06/24 13:17 Completed Procalcitonin Stat Lab 11/06/24 13:17 Completed UA [Urinalysis and Microscopic] Stat Lab 11/06/24 13:11 Completed Urine Culture Stat Micro 11/06/24 13:11 Completed Medical Decision Narrative: In summary patient is a 24-year-old female who presents to the emergency department for evaluation of nausea vomiting diarrhea and abdominal pain. Patient is initially normotensive at 126/88 tachycardic at 102 with sinus tachycardia the bedside monitor breathing 18 times a minute satting 100% on room air upon arrival, afebrile at 97.9. Physical exam is remarkable for diffuse abdominal tenderness but more focally so in the left lower quadrant without rebound or guarding or rigidity. Bowel sounds normal active. Differential diagnosis includes enteritis versus colitis versus diverticulitis versus ovarian cyst versus urinary tract infection etc. Initial workup will be conducted with hematologic labs urinalysis CT scan abdomen pelvis with contrast. Initial interventions include crystalloid bolus Toradol Tylenol Zofran. Initial workup reviewed by me and her white count is 12.1 H&H are normal absolute neutrophil count is 8.3, serum hCG is negative and the remainder of her hematologic labs are nonactionable, urinalysis shows 1+ of blood negative nitrite negative leukocyte esterase and differential shows 5-10 red cells 5-10 white cells 20-50 epithelial cells indicating contamination and 3+ bacteria. Patient does not have urinary symptoms. Informed interpretation of her CT scan abdomen pelvis shows no acute intra-abdominal process but does show fluid-filled small bowel with normal caliber.. Upon repeat evaluation patient is tolerating oral intake and feels much improved. Given this patient is appropriate for discharge with prescription for Zofran, I have referred her on to gastroenterology for further workup of the stable liver lesion seen on CT scan. If patient has worsening continued or new signs or symptoms patient to follow-up PCP return to the ER as needed. <Arian Lind MD - Last Filed: 11/09/24 15:32> Vital Signs: 11/06/24 12:56 11/06/24 15:22 11/06/24 16:07 Temperature 97.9 F 97.8 F 97.8 F Temperature Source Oral Oral Oral Pulse Rate 58 L 58 L Pulse Rate [Radial] 102 H Respiratory Rate 18 18 18 Blood Pressure 103/62 L 103/62 L Blood Pressure [Right Arm] 126/88 Blood Pressure Mean [Right Arm] 100 Blood Pressure Source Automatic Cuff Automatic Cuff Blood Pressure Source [Right Arm] Automatic Cuff Blood Pressure Position Supine Sitting Blood Pressure Position [Right Arm] Sitting 02 Sat by Pulse Oximetry 100 100 Oxygen Delivery Method Room Air Room Air Room Air Lab Data Lab Results 11/06/24 13:11: Urine Color Yellow, Urine Appearance Clear, Urine pH 5.5, Ur Specific [place] >= 1.030, Urine Protein Negative, Urine Glucose (UA) Negative, Urine Ketones Negative, Urine Blood 1+ A, Urine Nitrate Negative, Urine Bilirubin Negative, Urine Urobilinogen 0.2, Ur Leukocyte Esterase Negative, Urine RBC 5-10, Urine WBC 5-10, Ur Squamous Epith Cells 20-50, Urine Bacteria 3+ 11/06/24 13:17: WBC 12.1 H, RBC 4.90, Hgb 14.0, Hct 40.3, MCV 82.2, MCH 28.6, MCHC 34.7, RDW 12.4, Plt Count 313, MPV 10.9 H, Neut % (Auto) 69.1, Lymph % (Auto) 25.0, [place] % (Auto) 3.9, Eos % (Auto) 1.1, Baso % (Auto) 0.7, Neut # (Auto) 8.3 H, Lymph # (Auto) 3.0, [place] # (Auto) 0.5, Eos # (Auto) 0.1, Baso # (Auto) 0.1, Sodium 141, Potassium 4.2, Chloride 108 H, Carbon Dioxide 22, Anion Gap 15.2 H, BUN 14, Creatinine 0.60, Estimated Creat Clear 190, Estimated GFR 125, Est GFR ( Amer) 151, Glucose 103 H, Calcium 9.3, Magnesium 1.7, Total Bilirubin 0.4, AST 20, ALT 17, Alkaline Phosphatase 63, Total Protein 8.1, Albumin 5.2 H, Globulin 2.9, Albumin/Globulin Ratio 1.8, Lipase 65, Procalcitonin < 0.030, Serum HCG, Qual Negative 11/06/24 14:15: Stl Aeromonas (PCR) Not detected, Stl C. cayetanensis PCR Not detected, Stool Rotavirus (PCR) Not detected, Stl Adenov F 40/41 PCR Not detected, Stool Astrovirus (PCR) Not detected, Stool Campylobacter PCR Not detected, Stl C.difficile Tox PCR Not detected, Stool Cryptosporidium PCR Not detected, Stl E.coli Shiga Tox PCR Not detected, Stool E coli O157 PCR Not detected, Stl Enterotoxigenic E PCR Not detected, Stool EPEC (PCR) Not detected, Stool EAEC (PCR) Not detected, Stl E. histolytica PCR Not detected, Stool Giardia Lamblia PCR Not detected, Stool Salmonella PCR Not detected, Stool Sapovirus (PCR) Not detected, Stl P. shigelloides PCR Not detected, Stl Shigella/EIEC PCR Not detected, St Y.enterocolitica PCR Not detected, Stool Vibrio (PCR) Not detected, Stl Vibrio cholerae PCR Not detected, Stl Norovirus GI/GII PCR Not detected Orders (Tests/Meds): ED MEDICATIONS Discontinued Medications Generic Name Dose Route Start Last Admin Trade Name Freq PRN Reason Stop Dose Admin Sodium Chloride 1,000 mls @ 999 mls/hr 11/06/24 12:58 11/06/24 13:17 Sod Chlor 0.9% 1000ml Bag IV 11/06/24 13:58 999 mls/hr .Q1H1M ONE Administration Iopamidol 75 ml 11/06/24 14:29 11/06/24 14:30 Iopamidol-370 (76%);100ml Bottle IV 11/06/24 14:30 75 ml ONCE ONE Administration Ketorolac Tromethamine 15 mg 11/06/24 12:58 11/06/24 13:16 Ketorolac 30mg/Ml Vial IV 11/06/24 12:59 15 mg ONCE ONE Administration Ondansetron HCl 4 mg 11/06/24 12:58 11/06/24 13:16 Ondansetron 4mg/2ml Vial IV 11/06/24 12:59 4 mg ONCE ONE Administration Sodium Chloride 10 ml 11/06/24 14:29 11/06/24 14:30 Sodium Chloride 0.9% 10ml Syr (Rad Only) IV 11/06/24 14:30 10 ml ONCE ONE Administration ORDERS Category Date Time Status CT abdomen pelvis w con Stat Cat Scan 11/06/24 12:58 Completed CBC w/Auto Diff [Complete Blood Count Auto Diff] Stat Lab 11/06/24 13:17 Completed CMP [Comprehensive Metabolic Panel] Stat Lab 11/06/24 13:17 Completed Diarrhea 23 Panel, PCR Stat Lab 11/06/24 14:15 Completed HCG Qualitative, Serum Stat Lab 11/06/24 13:17 Completed Lipase Stat Lab 11/06/24 13:17 Completed Magnesium Stat Lab 11/06/24 13:17 Completed Procalcitonin Stat Lab 11/06/24 13:17 Completed UA [Urinalysis and Microscopic] Stat Lab 11/06/24 13:11 Completed Urine Culture Stat Micro 11/06/24 13:11 Completed Medical Decision Narrative: In summary patient is a 24-year-old female who presents to the emergency department for evaluation of nausea vomiting diarrhea and abdominal pain. Patient is initially normotensive at 126/88 tachycardic at 102 with sinus tachycardia the bedside monitor breathing 18 times a minute satting 100% on room air upon arrival, afebrile at 97.9. Physical exam is remarkable for diffuse abdominal tenderness but more focally so in the left lower quadrant without rebound or guarding or rigidity. Bowel sounds normal active. Differential diagnosis includes enteritis versus colitis versus diverticulitis versus ovarian cyst versus urinary tract infection etc. Initial workup will be conducted with hematologic labs urinalysis CT scan abdomen pelvis with contrast. Initial interventions include crystalloid bolus Toradol Tylenol Zofran. Initial workup reviewed by me and her white count is 12.1 H&H are normal absolute neutrophil count is 8.3, serum hCG is negative and the remainder of her hematologic labs are nonactionable, urinalysis shows 1+ of blood negative nitrite negative leukocyte esterase and differential shows 5-10 red cells 5-10 white cells 20-50 epithelial cells indicating contamination and 3+ bacteria. Patient does not have urinary symptoms. Informed interpretation of her CT scan abdomen pelvis shows no acute intra-abdominal process but does show fluid-filled small bowel with normal caliber.. Upon repeat evaluation patient is tolerating oral intake and feels much improved. Given this patient is appropriate for discharge with prescription for Zofran, I have referred her on to gastroenterology for further workup of the stable liver lesion seen on CT scan. If patient has worsening continued or new signs or symptoms patient to follow-up PCP return to the ER as needed. I was consulted by the PRESTON, and we discussed the complexity of the problems being addressed. I approved the treatment and management plan for this patient's care in the Emergency Department, thus performing a substantive portion of the medical decision making. Arian Lind MD Critical Care <JOAN Collier - Last Filed: 11/06/24 16:40> Critical Care Time Critical Care Time: No
[2024-11-06 12:56] VITALS: BP 126/88; PULSE 102; RESP 18; TEMP 36.6; O2SAT 100; BMI 31.8
--- NOTE | 2024-11-06 12:58 | CT_ITS ---
FINAL REPORT TECHNIQUE: After the administration of intravenous contrast, axial images were obtained through the abdomen and pelvis by computed tomography. The study was performed with techniques to keep radiation dose as low as reasonably achievable, (ALARA). Individual dose reduction techniques using automated exposure control or adjustment of mA and/or kV according to the patient's size were employed. CLINICAL HISTORY: Abdominal pain, nausea vomiting diarrhea COMPARISON: 09/09/2024 FINDINGS: Abdomen: Scarring is noted at the left lung base. Again seen is a mildly enhancing mass in the anterior portion of the medial segment of the left lobe of the liver measuring 2.1 cm in greatest dimension. The gallbladder is absent. The spleen, pancreas, adrenals and kidneys appear unremarkable. The aorta is normal in caliber. There is no free fluid or adenopathy. There is a tiny fat containing hernia in the midline of the upper anterior abdominal wall again noted. Pelvis: The appendix is unremarkable. The colon is nondistended. The urinary bladder is incompletely distended. The uterus is present and lies eccentric to the left. There is no free fluid or adenopathy. IMPRESSION: Liver mass as described. By history, this has been stable to 2019 and consistent with benign lesion. Reviewed, Interpreted and Dictated by Haris Nice MD Transcribed by Shira Alvarado Authenticated and [facility]
[2024-11-06 13:15] LABS: Microscopic, Urine URINE MICROSCOPIC (MICROSCOPIC)
[2024-11-06] MEDS: ONDANSETRON 4MG/2ML VIAL 4 MG IV (13:16)
[2024-11-06] MEDS: KETOROLAC 30MG/ML VIAL 15 MG IV (13:16)
[2024-11-06] MEDS: 0.9 % SODIUM CHLORIDE 1000ML 1,000 ML 999 ML IV (13:17)
[2024-11-06 13:22] LABS: Appearance,Urine CLEAR (Clear); Bilirubin,Urine Negative (Negative); Blood, Urine 1+ (Negative); Color,Urine YELLOW (Yellow); Glucose,Urine (UA) Negative (Negative); Ketones,Urine Negative (Negative); Leukocyte Esterase,Urine Negative (Negative); Nitrate,Urine Negative (Negative); PH,Urine 5.5 (5.0-8.5); Protein,Urine Negative (Negative); Specific Gravity, Urine >= 1.030 (1.005-1.030); Urobilinogen,Urine 0.2 EU/dl (0.2)
[2024-11-06 13:23] LABS: Basophils # 0.1 K/mm3 (0-0.2); Basophils % 0.7 % (0.1-2.0); Eosinophils # 0.1 Kmm3 (0.0-0.4); Eosinophils % 1.1 % (0.1-12.0); Hematocrit 40.3 % (37.0-47.0); Mean Corpuscular HGB Conc 34.7 g/dL (31.8-35.4); Mean Corpuscular Hemoglobin 28.6 pg (27.0-31.2); Mean Corpuscular Volume 82.2 fl (81-99); Mean Platelet Volume 10.9 fl (7.4-10.4); Monocytes # 0.5 K/mm3 (0.1-1.0); Monocytes % 3.9 % (1.7-9.3); Neutrophils # 8.3 K/mm3 (1.8-7.8); Neutrophils % 69.1 % (37.0-80.0); Nucleated Red Blood Cells # 0 10^3/uL; Nucleated Red Blood Cells % 0 %; Platelet Count 313 K/mm3 (142-424); Red Cell Distribution Width 12.4 % (11.5-17.5); Red Cell Distribution Width-SD 37.3 fL; White Blood Count 12.1 K/mm3 (4.8-10.8)
[2024-11-06 13:29] LABS: Albumin Level 5.2 g/dl (3.5-5.0); Chloride 108 mmol/L (98-107); Potassium 4.2 mmoL/L (3.5-5.1); Sodium 141 mmol/L (136-145)
[2024-11-06 13:32] LABS: Alanine Aminotransferase 17 U/L (12-78); Albumin/Globulin Ratio 1.8 (1.1-1.8); Alkaline Phosphatase 63 U/L (38-126); Anion Gap 15.2 mEq/L (5-15); Aspartate Amino Transferase 20 U/L (14-36); Bilirubin,Total 0.4 mg/dl (0.2-1.3); Blood Urea Nitrogen 14 mg/dl (7-17); Calcium 9.3 mg/dl (8.4-10.2); Carbon Dioxide 22 mmol/L (22.0-30.0); Creatinine Clearance Estimated 190 mL/min (50-200); Estimated Glomerular Filt Rate 125 ml/min (>60); GFR (African American) 151 ML/MIN (>60); Globulin 2.9 g/dL (1.3-3.2); Glucose 103 mg/dl (74-100); Lipase 65 U/L (23-300); Total Protein,Serum 8.1 g/dl (6.3-8.2)
[2024-11-06 13:33] LABS: Magnesium 1.7 mg/dl (1.6-2.3)
[2024-11-06 13:49] LABS: Bacteria,Urine 3+ /lpf; Squamous Epithelial Cell,Urine 20-50 #/hpf (0-5)
[2024-11-06 14:10] LABS: HCG Qualitative, Serum Negative (Negative)
[2024-11-06 14:13] LABS: Procalcitonin < 0.030 ng/mL (0.0-2.0)
[2024-11-06 14:19] LABS: Adenovirus F 40/41, stool Not Detected (NotDetected); Astrovirus Not Detected (NotDetected); Campylobacter Not Detected (NotDetected); Clostridium Difficile A/B, PCR Not Detected (NotDetected); Cryptosporidium Not Detected (NotDetected); Cyclospora Cayetanesis Not Detected (NotDetected); Entamoeba histolytica Not Detected (NotDetected); Enteroaggregative E coli Not Detected (NotDetected); Enteropathogenic E coli Not Detected (NotDetected); Enterotoxigenic E coli Not Detected (NotDetected); Giardia lamblia Not Detected (NotDetected); Norovirus Not Detected (NotDetected); Plesimonas Shigalloides, PCR Not Detected (NotDetected); Rotavirus A Not Detected (NotDetected); Salmonella, PCR Not Detected (NotDetected); Sapovirus Not Detected (NotDetected); Shiga-like toxin E coli Not Detected (NotDetected); Shigella Enterovasive E coli Not Detected (NotDetected); Vibrio Cholerae Not Detected (NotDetected); Vibrio, PCR Not Detected (NotDetected); Yersinia Entercolitica, PCR Not Detected (NotDetected)
[2024-11-06] MEDS: IOPAMIDOL-370 (76%);100ML BOTTLE 75 ML IV (14:30)
[2024-11-06] MEDS: SODIUM CHLORIDE 0.9% 10ML SYR (RAD ONLY) 10 ML IV (14:30)
[2024-11-06 15:22] VITALS: BP 103/62; PULSE 58; RESP 18; TEMP 36.6; O2SAT 100
[2024-11-06 16:07] VITALS: BP 103/62; PULSE 58; RESP 18; TEMP 36.6; O2SAT 100
== END 2024-11-06 16:08 | disposition home or self-care (01) ==
PROVIDERS: Physician Assistant; Emergency Provider Emergency Medicine; PCP Nurse Practitioner Family
DX: R10.32 Left lower quadrant pain (principal); R11.2 Nausea with vomiting, unspecified; R00.0 Tachycardia, unspecified; R16.0 Hepatomegaly, not elsewhere classified
CPT/HCPCS: 74177; 80053; 81001; 83690; 83735; 84145; 84703; 85025; 87086; 87507; 96361; 96374; 96375; 99285; J1885; J2405; J7030; Q9967